=== PATIENT | male | born 1995 | race Caucasian/White ===

== ENCOUNTER 2024-06-26 01:29 | Emergency (ER) | payer OTHER ==
[~2024-06-26] VITALS: Ht 167.6 cm; Wt 61.2 kg
[2024-06-26 02:29] VITALS: BP 124/74; TEMP 97.9
[2024-06-26] MEDS ORDERED: FLUORESCEIN SODIUM OPHTH 1 EA STRIP ONE ×2 (02:45→02:46)
[2024-06-26] MEDS ORDERED: TETRAcaine 5 ML BOTTLE ONE (02:45)
[2024-06-26] MEDS ORDERED: TOBR5DRO48 EACHEYE (03:15)
[2024-06-26] MEDS: ACETAMINOPHEN 325 MG TABLET PO ONE (03:25)
[2024-06-26] MEDS: FLUORESCEIN SODIUM OPHTH 1 EA STRIP OP ONE (03:25)
[2024-06-26] MEDS: TETRACAINE HCL 0.5% OPHTALMIC 15 ML BOTTLE OP ONE (03:25)
[2024-06-26 03:32] VITALS: O2SAT 99
== END 2024-06-26 03:33 | disposition home or self-care (01) ==
LOC: ER 01:34
DX: T65.891A Toxic effect of other specified substances, accidental (unintentional), initial encounter (principal); T26.61XA Corrosion of cornea and conjunctival sac, right eye, initial encounter; T26.62XA Corrosion of cornea and conjunctival sac, left eye, initial encounter; Y93.89 Activity, other specified; Y92.89 Other specified places as the place of occurrence of the external cause; Y99.8 Other external cause status